=== PATIENT | female | born 1970 | race African-American/Black ===

== ENCOUNTER 2019-01-30 08:53 | Emergency (ER) | payer OTHER ==
[~2019-01-30] VITALS: Ht 160 cm; Wt 81.7 kg
[2019-01-30] MEDS ORDERED: KEFLEX500 M1 PO (09:58)
[2019-01-30] MEDS ORDERED: NORCO 5-325 TA1 EAC1 PO (09:58)
[2019-01-30] MEDS ORDERED: BACTRIM DS TAB1 EACH PO (09:58)
[2019-01-30 10:12] VITALS: BP 84/51
== END 2019-01-30 10:15 | disposition home or self-care (01) ==
LOC: M.ERS 08:53
DX: L02.415 Cutaneous abscess of right lower limb (principal); L03.115 Cellulitis of right lower limb